=== PATIENT | male | born 2000 | race Caucasian/White ===

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

== ENCOUNTER 2020-03-28 14:19 | Outpatient (CLI) | payer OTHER | END 2020-03-28 14:31 | disposition home or self-care (01) | LOC: SONOGRAMA 14:19 | PROVIDERS: ATTEND Pediatrics | DX: I86.1 Scrotal varices (principal) ==

== ENCOUNTER 2024-07-26 12:19 | Emergency (ER) | payer OTHER ==
[~2024-07-26] VITALS: Ht 170.2 cm; Wt 77.1 kg
[2024-07-26] MEDS ORDERED: METHYLPREDNISOLONE SOD SUCC 40 MG VIAL ONE (14:34)
[2024-07-26] MEDS ORDERED: LIDOCAINE HCL 1% 10ML VIAL ONE (14:34)
[2024-07-26] MEDS ORDERED: METHYLPREDNISOLONE SOD SUCC 40 MG VIAL IV STA (14:38)
[2024-07-26] MEDS ORDERED: CEFTRIAXONE SODIUM 500 MG VIAL IM STA (14:38)
[2024-07-26] MEDS ORDERED: PEPCID AC20 MG PO (16:17)
[2024-07-26] MEDS ORDERED: BENZONATATE200 M1 PO (16:17)
[2024-07-26] MEDS ORDERED: SINGULAIR10 MG PO (16:17)
== END 2024-07-26 16:42 | disposition home or self-care (01) ==
LOC: ER 12:21
DX: B34.9 Viral infection, unspecified (principal); Z20.822 Contact with and (suspected) exposure to COVID-19